=== PATIENT | female | born 2005 | race Hispanic/Latino ===

== ENCOUNTER 2024-11-04 04:59 | Emergency (ER) | payer SELFPAY ==
[2024-11-04 04:59] VITALS: BMI 34.3
[2024-11-04 05:02] VITALS: BP 126/82
--- NOTE | 2024-11-04 06:52 | ED.GENMED ---
History of Present Illness
General
Chief Complaint: Dental Problem
Source: patient
Exam Limitations: none
Time Seen by Provider: 11/04/24 06:07
Nursing documentation reviewed up to this point in time: agreed with
History of Present Illness
History of Present Illness:
19-year-old female with no reported chronic medical issues presents to the ER for evaluation of dental pain. Patient reports symptoms started a few days ago in the absence of any trauma and it been constant since that time. She reports pain from
left lower molars that radiates up the side of her face/jaw. She denies any associated facial swelling. She denies any fevers or chills. She denies any other acute complaints. She has been managing with Tylenol which she says controls the pain
reasonably although not as well this morning. She says that she has not seen a dentist, unfortunately does not have insurance.
Review of Systems
Review of Systems
All Other Systems: ROS reviewed and negative except as documented in HPI and ROS
Constitutional: Denies fever
EENT: Reports other (Dental pain)
Respiratory: Denies trouble breathing
Phy Exam
Physical Exam
Physical Exam:
General: Well appearing and non-toxic
HEENT: protecting airway; mild tenderness to percussion of the first left lower molar; she does have what looks like erupting wisdom tooth left lower as well; no facial swelling, no obvious caries or fractures, no tongue elevation
Neck: Supple without meningeal signs
CV: No evidence of cyanosis
Resp: No accessory muscle use
Abd: Non-distended
Extremities: No deformities
Neuro: Alert
Psych: Normal affect
Skin: Intact
Scores
Heart Failure Risk
Heart Failure Risk Score: Not Applicable
Heart Score for Chest Pain Patients
STEMI patient?: Not applicable
Withdrawal Assessment of Alcohol
Withdrawal Assessment Completed?: Not applicable
Course
Orders/Labs/Results
Orders:
Orders
11/04/24 06:47
Amoxicillin 875 mg/Clav 125 mg [Augmentin 875 mg/125 mg] 1 tablet PO NOW STA
Ketorolac [Toradol] 30 mg IM NOW STA
Vital Signs
Initial and Last Documented VS:
Initial Vital Signs
Temp Pulse Resp BP Pulse Ox
36.8 C 64 16 126/82 100
11/04/24 05:02 11/04/24 05:02 11/04/24 05:02 11/04/24 05:02 11/04/24 05:02
Last Documented Vital Signs
Temp Pulse Resp BP Pulse Ox
36.8 C 64 16 126/82 100
11/04/24 05:02 11/04/24 05:02 11/04/24 05:02 11/04/24 05:02 11/04/24 05:02
MDM/Problems Addressed
Differential Diagnosis Includes:
Dental abscess, erupting wisdom teeth/impacted wisdom tooth, TMJ
MDM/Problems Addressed:
19-year-old female presents with left lower jaw/dental pain as described above. Vitals and exam as above. Could be developing dental abscess versus impacted wisdom teeth�while she does have erupting wisdom tooth on the left, she is more tender to
percussion on the first molar on the left lower jaw. Will plan to initiate antibiotics. Recommended supplementing Tylenol with ibuprofen for pain control. She will need to see a dentist in follow-up�had a long discussion with the patient about
options for dental clinics and provided a long list of free clinics in [facility] as well as walk-in clinics in [place]. Stable for discharge. Spoke about follow-up plan and return precautions in detail and all questions
answered.
*Pulse Oximetry
SaO2: 100
Oxygen Mode of Delivery: Room air
Patient hypoxic: no (100%)
*Critical Care Note
Total Time (30-74mins, 75-104mins- exclusive of procedures): Not Applicable
Data Reviewed
Source: patient
Further Testing Considered But Not Given:
Considered CT of the face
ED Attending Note
-
Portions of this chart may have been created with voice recognition software.� Occasional wrong word or��sound alike� substitutions may have occurred due to the inherent limitations of voice recognition software.
Discharge Plan
Departure
Patient Disposition: Home (Routine Discharge)
Date of Disposition: 11/04/24
Time of Disposition: 06:48
Patient with high blood pressure during this ER visit?: No
Discharge Problem:
Pain, dental
Instructions: Dental Pain (DC)
Prescriptions:
New
amoxicillin-pot clavulanate 875-125 mg tablet
1 tab PO BID 7 Days Qty: 14 0RF
Referrals:
NONE,* [Family Provider, Internal Medicine]
Activity Restrictions/Additional Instructions:
You were seen in the emergency room for dental pain. You were prescribed an antibiotic to take in case this is from a developing infection although your pain could also be from an impacted wisdom tooth. You need to follow-up with a dentist. You
are provided a list of free clinics to follow-up with including ones that accept walk-ins with no associated fee. You should take the antibiotic as prescribed. For pain you can take the following medications:
Ibuprofen 400 mg every 6 hours
Tylenol 650 mg every 6 hours
If your symptoms are worsening or if you have any other issues that require emergent evaluation please return to the emergency room.
Acudi� a urgencias por dolor dental. Le recetaron un antibi�kristine por si se debe a shahzad infecci�n en desarrollo, aunque el dolor tambi�n podr�a deberse a shahzad muela del juicio impactada. Debe acudir a un dentista para chakraborty seguimiento. Le proporcionamos
shahzad lista de cl�nicas gratuitas, incluyendo algunas que aceptan pacientes sin rich previa. Debe mayo el antibi�kristine seg�n lo prescrito. Para el dolor, puede mayo los siguientes medicamentos:
Ibuprofeno 400 mg cada 6 horas
Tylenol 650 mg cada 6 horas
Si munira s�ntomas empeoran o tiene alg�n otro problema que requiera shahzad evaluaci�n urgente, regrese a urgencias.
Interventions
Interventions:
*Risk Screen - Suicide Last Done: 11/04/24 05:08
*General Assessment Last Done: 11/04/24 05:08
*ED COVID-19 Vaccine History Last Done: 11/04/24 05:08
Discharge Date and Time
Print Language: [id number]
[2024-11-04 07:06] VITALS: BP 116/79
[2024-11-04] MEDS: AUGMENTIN 875 MG/125 MG 1 TABLET PO (07:15)
[2024-11-04] MEDS: TORADOL 30 MG IM (07:16)
== END 2024-11-04 07:26 | disposition home or self-care (01) ==
LOC: EMR 04:59
PROVIDERS: EMERGENCY PHYSICIAN Emergency Medicine
DX: K08.89 Other specified disorders of teeth and supporting structures (principal); Z59.71 Insufficient health insurance coverage
CPT/HCPCS: 99284; 96372